=== PATIENT | female | born 1950 | race Caucasian/White ===

== ENCOUNTER 2024-05-15 11:11 | Day surgery (SDC) | payer OTHER, SELFPAY ==
[2024-05-01 10:47] VITALS: BMI 31.1
[2024-05-15] VITALS (9 sets, daily range): BP systolic 103–138; BP diastolic 57–82; PULSE 80–94; RESP 14–18; TEMP 36.1–36.8; O2SAT 94–98; BMI 31.1
--- NOTE | 2024-05-15 06:39 | DI.RAD.S_ITS ---
PROCEDURE: XR SHOULDER LT 1V INDICATIONS: reverse TSA TECHNIQUE: 1 views of the shoulder were acquired. COMPARISON: None. FINDINGS: Bones: Patient is status post reverse left shoulder arthroplasty with anatomic shoulder alignment. Surgical hardware are in inspected position. No acute fracture or dislocation. Soft tissues: Expected postsurgical changes are seen in left shoulder soft tissue. IMPRESSION: Postsurgical changes from left shoulder reverse arthroplasty with anatomic shoulder alignment. Dictated by: Marvin Kingston M.D. on 05/16/2024 at 16:36 Approved by: Marvin Kingston M.D. on 05/16/2024 at 16:37
--- NOTE | 2024-05-15 14:21 | PM.PREOP ---
Pre-operative Note Interval Note History & Physical reviewed/Exam performed by Physician: Yes Changes to H&P: No
[2024-05-15] MEDS: CLINDAMYCIN 900 MG/50 ML PIGGYBACK 50 MG IV (15:40)
[2024-05-15] MEDS: TRANEXAMIC ACID 1,000 MG in SODIUM CHLORIDE 0.9% 100 ML 200 MG IV (15:54)
--- NOTE | 2024-05-15 16:12 | SUR.OPER ---
Beach chair with Skytron shoulder positioner. Lower body on padded OR bed. Head in foam padded head cradle, secured with straps. Non-operative arm secured <90 degrees abduction. Pillow under knees. Safety belt at thigh. Cloth tape over blanket over lower legs.
[2024-05-15] MEDS: BUPIVACAINE 0.25% (PF) 30 ML, EPINEPHrine 0.15 MG INJ (16:19)
--- NOTE | 2024-05-15 17:19 | PM.OP.1 ---
Operative Date/Time/Diagnoses Date of procedure: 05/15/24 Time of procedure: 17:19 Pre-op diagnosis: Left shoulder avascular necrosis Post-op diagnosis: same Procedure & Clinicians Procedure: Left reverse total shoulder arthroplasty Same procedure as scheduled: Yes Indications: Indications: This is a 74-year-old female who has avascular necrosis of her left shoulder. Symptoms have been present for years, insidious onset. Patient has failed a reasonable attempt at conservative therapy. After extensive discussion in clinic, they wished to go forward with surgery. Risks and benefits were described including the risk of infection, bleeding, damage to internal structures including nerves. We also discussed the risk of failure of surgery and the need for revision surgery as well as the risk of anesthesia. The patient expressed understanding with these risks and wished to go forward with surgery. Surgeon: Alonzo Ocampo Machinist Apprentice: Annita Renteria Anesthesia Type: General Operative Notes Findings: Findings: Osteoarthritis of the glenoid and humeral head as noted on preoperative imaging and under direct visualization Closure Type: primary Specimen(s): none sent Prosthetic devices, grafts, tissues, transplants, or devices: Tornier implants Base plate: standard 25 mm, +3 mm offset Glenosphere: Standard 36 mm Stem: Perform 2 Poly: +0, 55% coverage Estimated Blood Loss (mL): 100 Blood products transfused: none Procedure in detail: Patient was seen in the preoperative holding unit. The correct left shoulder was identified and marked with my initials. Again we discussed the risks and benefits of surgery and they wished to go forward with surgery. The patient was brought back to the operating room and placed supine on the operating table. Smooth endotracheal intubation was performed by anesthesia. All prominences were padded and they were placed into the beach chair position. Intravenous antibiotics were given. The left shoulder was then prepped with the standard sterile preparation and draping. A time-out was then performed in my initials were again identified on the correct shoulder. 1 g of IV tranexamic acid was given. A standard deltopectoral incision was made. Skin flaps were made. The cephalic vein was identified and retracted laterally. This was protected throughout the remainder of the case. Sharp dissection was made along the deltoid, subacromial and subcoracoid space to release adhesions. The conjoined tendon was identified and the axillary nerve was palpated and continuous using the tug test. It was protected throughout the remainder of the case. A brown retractor was placed underneath the deltoid muscle and a darach retractor underneath the conjoint tendon. The subscapularis muscle was ntoed to be intact. The anterior circumflex artery and associated veins on the lower border of the subscapularis were identified and tied off using 0-Vicryl. The biceps tendon was identified in the bicipital groove. This was released from its sheath, and taken from its origin on the glenoid and tied into the pectoralis tendon for a solid tenodesis. We then began a subscapularis peel. The subscapularis was tagged with an Ethibond suture. A 360 degree circumferential release of the subscapularis was performed with protection of the axillary nerve. The coracohumeral ligament was released at the base of the coracoid. The shoulder was then dislocated. Osteophytes were removed using combination of rongeur and osteotome. The rotator cuff was noted to be intact. An intramedullary guide was used set at version of 20?. Using an oscillating saw a conservative humeral head cut was made. Impaction reamers were reamed up to a size 2 stem with a built-in angle 135?. A neck protector was placed. Attention was then turned to the glenoid. After retracting the humeral head posteriorly a circumferential release was performed of the capsule with protection of the axillary nerve. The labrum was then released starting at the biceps anchor and going around the rim a small amount of triceps was released from the inferior glenoid. A center guide pin was then placed using the guide, followed by Reamer. After adequate cartilage was removed the boss was reamed and the centeral hole was drilled and measured. The base plate was then implanted and screwed into place. The peripheral screws were then sequentially drilled, measured, and placed. A 36 standard glenosphere was then selected and screwed into place onto the base plate. Turning back to the humerus, the humeral head was delivered and trialed with a 0 retentive. The arm was taken through range of motion and this was felt to be stable. The trial was then removed and a dilute Betadine wash was then performed with 1 L of sterile saline. Before placing the final implant, drill holes were made in the bicipital groove for the subscapularis repair, and sutures were passed through the drill holes. The final stem was then impacted into the humerus. The shoulder was then reduced and again brought through range of motion and was felt to be stable. The subscapularis was then repaired using a modified racking hitch with nice loupes. The deltopectoral interval was then closed with #2 Ethibond. The skin was closed with 2-0 vicryl and 3-0 Monocryl followed by Aquacel dressing. Patient was awoken from anesthesia and brought back to the postoperative recovery unit without issue. They were placed into a sling. Assisting participation: This operation could not have been safely performed (without compromising the technical results or length of the procedure) without the assistance of a skilled surgical product sales consultant. The surgical product sales consultant was medically necessary for proper positioning, retraction and manipulation of instruments, proper exposure, graft prep, and manipulation of tissue. Complications: none Post-operative Condition: stable Disposition: PACU Plan for aftercare: Postoperative instructions: Sling to remain on for 6 weeks. No external rotation past neutral for 6 weeks. Okay for the sling to come off for shower. Okay to shower over the Aquacel dressing. If any water gets underneath the dressing, remove the dressing. First postoperative visit in 2 weeks.
[2024-05-15] MEDS: TRAMADOL 50 MG TABLET 100 MG PO ×2 (17:58→23:18)
[2024-05-15] MEDS: LACTATED RINGERS 1,000 ML 100 ML IV (18:35)
[2024-05-15] MEDS: ACETAMINOPHEN 325 MG TABLET 650 MG PO (18:35)
--- NOTE | 2024-05-15 18:46 | P.CONS_ITS ---
History of Present Illness Consult details Date Patient Seen: 05/15/24 Time Patient Seen: 18:47 Chief complaint: Left reverse TSA *OPB* Reason for consult: Medical management, history of liver transplant, AFib, and TAVR. Narrative: Patient was a 74-year-old female who is status post a left shoulder replacement. The surgery went well and she would minimal estimated blood loss. She was extubated in the PACU and is doing well upon transfer to the floor. She denies any chest pain, or dyspnea. She also denies any recent increase of leg edema or orthopnea. She is followed by Dr. Srivastava at [facility]. He gave her a preoperative clearance for her surgery. She denies any recent issues with nausea, or vomiting. No abdominal pain. She does have a history of multiple drug allergies and is reluctant to take any pain medication other than tramadol. She does take this chronically, and request 100 mg q.4 hours as needed. She has no history of seizure disorder. Meds Home Medications and Allergies Home Medications Medication Instructions Recorded Confirmed Type acetaminophen 325 mg tablet 650 mg PO DAILY PRN Pain, Moderate 05/01/24 05/15/24 History (Tylenol) allopurinol 100 mg tablet 200 mg PO DAILY 05/01/24 05/15/24 History amlodipine 2.5 mg tablet 2.5 mg PO DAILY 05/01/24 05/15/24 History aspirin 81 mg tablet,delayed 81 mg PO DAILY 05/01/24 05/01/24 History release citalopram 20 mg tablet (Celexa) 20 mg PO DAILY 05/01/24 05/15/24 History clopidogrel 75 mg tablet 75 mg PO DAILY 05/01/24 05/15/24 History diclofenac sodium 1 % topical gel 2 g topical QID PRN arthritis 05/01/24 05/01/24 History (Voltaren Arthritis Pain) gabapentin 300 mg capsule 300 mg PO ONCE PM 05/01/24 05/15/24 History levothyroxine 25 mcg tablet 25 mcg PO DAILY 05/01/24 05/15/24 History metformin 500 mg tablet 500 mg PO TID 05/01/24 05/15/24 History metoprolol succinate 50 mg 25 mg PO BID 05/01/24 05/15/24 History tablet,extended release 24 hr nitroglycerin 0.4 mg sublingual 0.4 mg sublingual DIRECTED 05/01/24 05/01/24 History tablet nitroglycerin 0.4 mg/hr 1 patch topical DAILY 05/01/24 05/01/24 History transdermal 24 hour patch ondansetron 4 mg disintegrating 4 mg PO Q12H PRN nausea/vomiting 05/01/24 05/15/24 History tablet prochlorperazine maleate 10 mg 10 mg PO Q6H PRN nausea 05/01/24 05/15/24 History tablet ranolazine 1,000 mg 1,000 mg PO BID angina 05/01/24 05/15/24 History tablet,extended release,12 hr tramadol 50 mg tablet 50 mg PO BID PRN Pain, Moderate 05/01/24 05/15/24 History Allergies Allergy/AdvReac Type Severity Reaction Status Date / Time Cephalosporins Allergy Severe Anaphylaxis Verified 05/15/24 12:53 ciprofloxacin [From Cipro] Allergy Severe Anaphylaxis Verified 05/15/24 12:53 insulin glargine Allergy Severe Anaphylaxis Verified 05/15/24 12:53 [From Lantus U-100 Insulin] morphine Allergy Severe Anaphylaxis Verified 05/15/24 12:53 oxycodone Allergy Severe Hallucinati Verified 05/15/24 12:53 ng Sulfa (Sulfonamide Allergy Severe Anaphylaxis Verified 05/15/24 12:53 Antibiotics) hydromorphone [From Dilaudid] AdvReac Hives Verified 05/15/24 12:53 Review of Systems Review of Systems Narrative: All else reviewed and otherwise unremarkable except as noted in the history and physical. Exam Vital Signs (past 8 hours): - 05/15/24 13:15 05/15/24 17:28 05/15/24 17:38 Temperature 98.2 F 97.4 F L 97.3 F L Pulse Rate 83 89 84 Respiratory Rate 16 15 15 Blood Pressure 138/70 137/57 L 121/59 L Pulse Oximetry 98 94 94 Oxygen Delivery Method Room Air Room Air Nasal Cannula Oxygen Flow Rate 2 05/15/24 17:44 05/15/24 18:31 05/15/24 18:40 Temperature 97.3 F L 96.9 F L Pulse Rate 82 80 Respiratory Rate 15 14 Blood Pressure 131/57 L 124/60 Pulse Oximetry 97 96 Oxygen Delivery Method Nasal Cannula Nasal Cannula Oxygen Flow Rate 2 2 Oxygen Delivery Method Nasal Cannula Oxygen Flow Rate 2 Narrative Exam Narrative: NAD, alert and oriented, fluent speech, calm. Normocephalic skull, EOMI, anicteric sclera, symmetric pupils. Oropharynx unremarkable, no droop. Neck supple, midline trachea, no adenopathy. Lungs clear, normal rate and effort. Heart regular, no murmur gallop or rub. Abdomen is soft, non distended and non tender. Extremities are free of edema. Skin is free of rash or lesions. Joints are not swollen or deformed. Judgment appears to be normal. Left shoulder is in an immobilizer. She was a left chest port. [facility] Medical History Heart attack (2018) Non-Hodgkin lymphoma Arm fracture, left (2022) UTI (urinary tract infection) (01/2022) Cirrhosis, non-alcoholic Osteoarthritis Depression Skin cancer Hypothyroid Diabetes Hiatal hernia CAD (coronary artery disease) HLD (hyperlipidemia) Fibromyalgia Neuropathy Surgical History History of salpingo-oophorectomy History of appendectomy History of tonsillectomy H/O aortic valve replacement Hx of heart artery stent Hx of cholecystectomy Liver transplant recipient (2010) History of bilateral knee replacement (2012) Social History household members: none other: She lives in [place]. Tobacco & Substance Use Smoking Status: Former smoker alcohol intake: former Assessment & Plan Assessment & Plan narrative: 1. Liver transplant, present on admission and stable. 2. Aortic stenosis with history of TAVR, present on admission and stable. 3. History of lymphoma, currently in remission. 4. CAD with history of CA and coronary artery stenting. Present on admission and active. 5. DM 2, present on admission and active. 6. Depression, present on admission and active. 7. Fibromyalgia, present on admission and Active. Plan: - Monitor hemodynamics. - Resume usual chronic medications for cardiac and liver transplant. - Low-dose of glargine with correctional lispro for tonight. - Monitor liver function tests. Full resuscitation, confirmed with her tonight. Time-Based Coding :: 35 min spent with patient and on the chart (including review of chart, obtaining history, exam, reviewing outside data, placing orders, documenting exam and treatment plan, and counseling patient) on 05/15.
[2024-05-15] MEDS: RANOLAZINE 500 MG TAB.ER.12H 1000 MG PO (21:47)
[2024-05-15] MEDS: METFORMIN HCL 500 MG TABLET PO (21:47)
[2024-05-15] MEDS: GABAPENTIN 300 MG CAPSULE PO (21:50)
[2024-05-15] MEDS: ASPIRIN EC 81 MG TABLET PO (21:50)
[2024-05-15] MEDS: SENNOSIDES 8.6 MG TABLET 17.2 MG PO (21:50)
[2024-05-15] MEDS: TRAMADOL 50 MG TABLET PO (21:50)
[2024-05-15] MEDS: DOCUSATE 100 MG CAPSULE PO (21:50)
[2024-05-16] MEDS: ACETAMINOPHEN 325 MG TABLET 650 MG PO ×4 (00:16→16:48)
[2024-05-16 00:35] VITALS: BP 108/65; PULSE 84; RESP 16; TEMP 36.6; O2SAT 95
[2024-05-16 05:35] LABS: Add Manual Diff / Slide Review NO; Basophils Absolute Auto 0 /uL (0-100); Basophils Percent Auto 0.8 % (0-2); Eosinophils Absolute Auto 200 /uL (0-450); Eosinophils Percent Auto 3.1 % (2-4); Hematocrit 32.4 % (36-46); Hemoglobin 10.9 g/dL (12.0-16.0); Lymphocytes Absolute Auto 1200 /uL (1100-4500); Lymphocytes Percent Auto 22.4 % (25-40); Mean Corpuscular HGB Conc 33.7 % (30-36); Mean Corpuscular Hemoglobin 33.3 PG (26-34); Mean Corpuscular Volume 98.9 fL (80-100); Monocytes Absolute Auto 1000 /uL (0-900); Monocytes Percent Auto 17.4 % (3-14); Neutrophils Absolute Auto 3100 /uL (1500-7000); Neutrophils Percent Auto 56.3 % (50-75); Platelet Count 217 X10^3/uL (150-400); Red Blood Cell Count 3.27 X10^6/uL (4.0-5.2); Red Cell Distribution Width 14.3 % (11.6-14.8); White Blood Cell Count 5.5 X10^3/uL (4.5-11.0)
[2024-05-16] MEDS: LEVOTHYROXINE 25 MCG TABLET PO (05:47)
[2024-05-16] MEDS: TRAMADOL 50 MG TABLET 100 MG PO ×2 (05:48→17:34)
[2024-05-16] MEDS: LACTATED RINGERS 1,000 ML 100 ML IV (05:50)
[2024-05-16 05:52] LABS: BUN Creatinine Ratio 20.6 (6-22); Blood Urea Nitrogen 26 mg/dL (7-17); Carbon Dioxide 25 mmol/L (22-32); Chloride 101 mmol/L (98-107); Estimated Glomerular Filt Rate 45 mL/min (>60); Glucose 186 mg/dL (80-110); HEMOLYSIS < 15 (0-50); Sodium 134 mmol/L (137-145)
[2024-05-16 08:00] VITALS: BP 94/52; PULSE 84; RESP 16; TEMP 36.4; O2SAT 93
[2024-05-16] MEDS: RANOLAZINE 500 MG TAB.ER.12H 1000 MG PO ×2 (08:20→21:00)
[2024-05-16] MEDS: CLOPIDOGREL 75 MG TABLET PO (08:20)
[2024-05-16] MEDS: allopurinoL 100 MG TABLET 200 MG PO (08:20)
[2024-05-16] MEDS: CITALOPRAM 10 MG TABLET 20 MG PO (08:20)
[2024-05-16] MEDS: METFORMIN HCL 500 MG TABLET PO ×3 (08:20→20:59)
[2024-05-16] MEDS: polyethylene glycoL 3350 17 GM POWD.PACK PO (08:20)
[2024-05-16] MEDS: ASPIRIN EC 81 MG TABLET PO ×2 (08:20→20:59)
[2024-05-16] MEDS: DOCUSATE 100 MG CAPSULE PO (08:21)
--- NOTE | 2024-05-16 09:00 | CM.DANOTE ---
Initial DCP Assessment Note Pt is a 74 yo female, resident of [place], now POD#1 from left reverse TSA PCP: Shahzad Ballesteros Payer: Deepak WALSH Reviewed chart, met w/patient to review discharge plan. Patient lives independently in her [place] apt. Therapy pending today to assist with dispo planning. No barriers identified at this time to patient's safe discharge home w/sister and grandchildren to assist; close outpatient f/u recommended. CM team will plan to follow clinical course closely in case any DC needs or concerns arise. ATILIO Bowers Discharge Planning/Care Management CM Discharge Assessment Start: 05/16/24 08:53 Freq: Status: Active Protocol: Document 05/16/24 08:54 LELAND (Rec: 05/16/24 09:00 LELAND [id number]) Discharge Planning Assessment Assigned Soapstoner ATILIO Denise DPOA/Assigned Designee Name sister Catherine Contact Information [phone] Advance Directives? Yes: Needs to be updated. Advance Directives on File No History Provided By Patient,Medical Record Prior Living Arrangements Apartment/Condo Household Members none Type of transporation used prior to Drives own vehicle admit Independent with ADL's Yes Is patient alert and oriented? Yes Comment Home Barriers to Discharge No Comment Therapy pending today. Discharge Plan Home Transportation Arrangement Family Referrals Initiated None needed
--- NOTE | 2024-05-16 09:20 | PT.IIE ---
Current Diagnoses Primary osteoarthritis, left shoulder (05/15/24) Surgery Performed Operation Date: 05/15/24 13:30 Actual Procedures p Left reverse total shoulder arthroplasty with biceps tenodesis(Left) - Alonzo Ocampo MD Surgical History (Last Reviewed 05/15/24 @ 18:48 by Estuardo Pedro MD) H/O aortic valve replacement History of appendectomy History of bilateral knee replacement (2012) History of salpingo-oophorectomy History of tonsillectomy Hx of cholecystectomy Hx of heart artery stent Liver transplant recipient (2010) Medical History (Last Reviewed 05/15/24 @ 18:48 by Estuardo Pedro MD) Arm fracture, left (2022) CAD (coronary artery disease) Cirrhosis, non-alcoholic Depression Diabetes Fibromyalgia Heart attack (2018) Hiatal hernia HLD (hyperlipidemia) Hypothyroid Neuropathy Non-Hodgkin lymphoma Osteoarthritis Skin cancer UTI (urinary tract infection) (01/2022) Physical Therapy Inpatient Evaluation/Re-Eval M1 PT/OT-IP Prior Functional Status Start: 05/16/24 12:17 Freq: NEEDED Status: Active Protocol: Document 05/16/24 09:20 AB (Rec: 05/16/24 12:29 AB [id number]) Medical Review Prior Functional Status Medical History Reviewed Yes Communication able to make needs known Mobility and Gait pt stated that she was independent with all mobilities and ambulation without AD Social History Household Members none Living Arrangements Apartment/Condo Number of Floors (Floors) One Floor Number of Stairs To Enter/Railing? 15 steps B rails to enter Home Environment Standard Height Toilet Home Equipment Straight Cane,Raised Toilet Seat w/Armrests,Shower Seat without Backrest,Hand Held Shower,Grab Bars In Shower Additional Social History Comment pt's sister will be staying with pt for 2 days to assist; can call for assistance if needed afterwards M2 PT-IP Current Condition Start: 05/16/24 12:17 Freq: NEEDED Status: Active Protocol: Document 05/16/24 09:20 AB (Rec: 05/16/24 12:29 AB [id number]) Physical Therapy Current Condition Current Condition Evaluation Date 05/16/24 Treatment Diagnosis s/p L TSA reverse; difficulty in walking Onset Date 05/15/24 M3 PT-IP Subjective Start: 05/16/24 12:17 Freq: NEEDED Status: Active Protocol: Document 05/16/24 09:20 AB (Rec: 05/16/24 12:29 AB [id number]) Subjective Physical Therapy Visit Type Type Initial Evaluation Visit Start Time 09:20 Visit Stop Time 10:20 Number of POLE PEELER Visits 0 Physical Therapy Visit Comments Patient Comments agreeable to do PT Therapy Pain Assessment Pain When Pain Assessed At Rest Pain Present Pain Present Pain Reported Location Left Shoulder Intensity 8 Scale Used refuse to take pain meds Pain Management Techniques Apply Cold,Distraction, Modification of Treatment,Re- positioning,Timing of Activity with Medications M4 PT-IP Mobility and Gait Start: 05/16/24 12:17 Freq: NEEDED Status: Active Protocol: Document 05/16/24 09:20 AB (Rec: 05/16/24 12:29 [id number]) PT-Bed Mobility Assessment Supine to Sit Supine to Sit Minimal Assistance PT-Transfer Assessment Sit to and From Stand Sit to and from Stand Contact Guard Assistance,1 Person Assistance,Use of Upper Extremities Equipment Transfer Assistive Device None,Gait Belt Orthotic/Prosthetic Devices or Brace: Yes Transfers Transfer Destination Chair Transfer Technique ambulated Transfer Ability Level of Assist Minimal Assistance,1 Person Assistance,Use of Upper Extremities Comments Mobility Comments pt in bed and agreeable to do PT. obtained PLOF and home set up. educated pt on shoulder precautions and HEP. post-op handout provided to pt. BP: 113/60. pt completed supine to sit min A and cues. able to sit on EOB SBA. pt completed elbow/wrist/hand exercises and pendulum. asssited pt with sling management. ortho PA came in and informed PT that waist strap of sling is not necessary. pt also refused the waist strap. pt completed sit to stand from EOB CGA and ambulated in room ~ 25 ft without AD min A and cues. c/o nausea and unable to do further activities. BP checked: 109/61. O2 sat: 97%. positioned pt on the chair. call light and table placed within reach. Gait Assessment Gait Gait Assistance Required: Minimum Assistance,1 Person Assist Distance (Feet) 25 Able to Maintain Weight Bearing Status Yes During Gait Assistive Devices Assistive Device None,Gait Belt Orthotic/Prosthetic Devices or Brace: Yes Gait Deviations General Gait Pattern Ataxic,Decreased Stride Length ,Decreased Feet Clearance,Step -to Gait Factors Limiting Gait Function Factors Limiting Gait Function Decreased Activity Tolerance, Decreased Strength,Difficulty Following Directions,Limited Range of Motion,Pain,Poor Balance,Poor Safety Awareness PT-Balance Assessment Sitting Balance and Reactions Static Sitting Balance Ability Good Dynamic Sitting Balance Ability Good Standing Balance and Reactions Static Standing Balance Ability Fair Dynamic Standing Balance Ability Fair Device Used without AD M5 PT-IP Objective Assessments Start: 05/16/24 12:17 Freq: NEEDED Status: Active Protocol: Document 05/16/24 09:20 AB (Rec: 05/16/24 12:29 [id number]) Orientation Orientation/Cognition Level of Alertness Alert Orientation Name,Place,Situation Language Function Ability Hard of Hearing Safety Awareness Decreased Safety Awareness Memory Description No Deficits Noted Gross Range of Motion Lower Extremity ROM Assessment Within Functional Limits Strength Lower Extremity Strength Assessment Within Functional Limits Coordination Assessment Gross Coordination Gross Coordination WNL Sensation Assessment Sensation Sensation Description Numbness Comments Sensation Comments B feet numbness per pt Muscle Tone Muscle Tone WNL Yes M6 PT-IP Treatment Start: 05/16/24 12:17 Freq: NEEDED Status: Active Protocol: Document 05/16/24 09:20 AB (Rec: 05/16/24 12:29 AB [id number]) Physical Therapy Treatment Exercises Exercises Shoulder Pendulums,Elbow Flexion/Extension,Wrist ROM, Hand ROM Education Education Provided Precautions,Weight Bearing Status,Post-Op Packet,Safety M7 PT-IP Assessment and Plan Start: 05/16/24 12:17 Freq: NEEDED Status: Active Protocol: Document 05/16/24 09:20 AB (Rec: 05/16/24 12:29 [id number]) PT Summary Assessment and Plan Potential Rehabilitation Potential Fair Status of Condition at Evaluation Evolving Summary Impairments Pain,ROM,Strength,Balance, Coordination,Sensation,Tone, Cognition,Bed Mobility, Transfers,Gait,Activity Tolerance Assessment Summary pt is a 74 y/o F s/p L TSA reverse POD 1. pt with L shoulder precautions. pt with c/o 8/10 pain but refuses to take pain meds. pt requiring min A with bed mobility and ambulation without AD and was not able to tolerate much activity due to c/o nausea. pt lives alone but her sister will stay with her for ~ 2 days to assist. will continue to assess. Goals Bed Mobility Goal Independent Transfer Goal Independent,Cane Gait Goal Independent,Cane Gait Distance 200 Other Goals improve transfers, ambulation without AD 250 ft mod I up/down 15 steps 1 rail mod I Days to Meet Goals 10 Frequency of Treatment Frequency Of Treatment Twice a Day Treatment Plan Physical Therapy Treatment Plan Bed Mobility Training,Transfer Training,Gait Training, Therapeutic Exercise,Balance Retraining,Post Op Education, Discharge Planning,Hot or Cold Pack,Neuromuscular Re-ed, Coordination Retraining,Manual Therapy Precautions Shoulder Precautions Sling,PROM,Internal Rotation to Body,No External Rotation, No Abduction,Forward Flexion to 90 degrees,Pendulums Weight Bearing Status Weight Bearing Status Non-Weight Bearing Allowed Weight Bearing Amount (enter % LUE NWB or #) (%) Recommendations To Nursing Amount of Assist Needed 1 Person Assist Discharge Recommendations PT Discharge Recommendations Home with 22/01 Assist Available,Home Health Transportation Needs at Discharge Private Vehicle,Wheelchair/ Cabulance
--- NOTE | 2024-05-16 10:14 | PM.PNPO.1 ---
Subjective Subjective Interval history: Maria Teresa is a pleasant 74 year old female who is POD#1 s/p left reverse total shoulder arthroplasty by Dr. Ocampo. This morning patient reports she is doing well, she does feel groggy still and like she has not fully woken up from the anaesthesia. She also complains of poor pain control. She states she would not feel safe d/c to home w/ her feeling this groggy still since her sister is in her 80's and can only provide limited support. She also has 14 steps at home. She lives alone but her sister plans to stay with her for the first few days post-op before returning back to [place]. She is urinating well w/o issue. She does not have her PT set up yet. Denies fever, chills, chest pain, SOB. Does endorse some nausea w/o vomiting. She has zofran ordered but it does not look like she has been given any according to the MAR. Exam Vital Signs (past 8 hours): - 05/16/24 08:00 Temperature 97.6 F Pulse Rate 84 Respiratory Rate 16 Blood Pressure 94/52 L Pulse Oximetry 93 Oxygen Flow Rate 0 Oxygen Delivery Method Nasal Cannula Oxygen Flow Rate 0 Narrative Exam Narrative: Patient sitting up comfortably at the side of the bed during our interview today. No acute distress. AOx3. Grossly normal alignment of the LUE with mild-moderate swelling throughout the LUE. No ecchymosis. Finger to thumb opposition intact, 4/5 pharmacy services director strength. Gross sensation intact throughout bilateral upper extremities. Calves soft and non-tender bilaterally. Brisk capillary refill, pulses intact. Post-surgical Aquacel dressing clean, dry and intact over the left shoulder without drainage. Objective Labs 05/16/24 04:43 05/16/24 04:43 Labs: Laboratory Results - last 24 hr 05/16/24 04:43 WBC 5.5 RBC 3.27 L Hgb 10.9 L Hct 32.4 L MCV 98.9 MCH 33.3 MCHC 33.7 RDW 14.3 Plt Count 217 Neut % (Auto) 56.3 Lymph % (Auto) 22.4 L Kidder % (Auto) 17.4 H Eos % (Auto) 3.1 Baso % (Auto) 0.8 Neut # (Auto) 3100 Lymph # (Auto) 1200 Kidder # (Auto) 1000 H Eos # (Auto) 200 Baso # (Auto) 0 Sodium 134 L Potassium 5.0 Chloride 101 Carbon Dioxide 25 BUN 26 H Creatinine 1.26 H Estimated GFR 45 L BUN/Creatinine Ratio 20.6 Glucose 186 H Calcium 9.0 PFSH Medical History Heart attack (2019) Non-Hodgkin lymphoma Arm fracture, left (2022) UTI (urinary tract infection) (01/2022) Cirrhosis, non-alcoholic Osteoarthritis Depression Skin cancer Hypothyroid Diabetes Hiatal hernia CAD (coronary artery disease) HLD (hyperlipidemia) Fibromyalgia Neuropathy Surgical History History of salpingo-oophorectomy History of appendectomy History of tonsillectomy H/O aortic valve replacement Hx of heart artery stent Hx of cholecystectomy Liver transplant recipient (2010) History of bilateral knee replacement (2012) Social History household members: none other: She lives in [place]. Smoking Status: Former smoker alcohol intake: former Assessment & Plan Post-op Postoperative Procedures: Procedures Operation Date: 05/15/24 13:30 Actual Procedure Side Surgeon p Left reverse total shoulder arthroplasty with biceps tenodesis Left Alonzo Ocampo MD Postoperative plan narrative: 1) Plan to discharge to home later today if sx improve or tomorrow with sister pending improvement in lethargy, nausea and pain control. Would like patient to be given zofran if nauseous. 2) Continue multimodal pain management with ice to the shoulder for additional pain control. 3) ASA b.i.d. for DVT prophylaxis. 4) Work w/ PT on appropriate ROM. Remain in sling w/ no ER past neutral for 6 weeks. Recommend pendulum exercises. Patient needs to schedule outpatient PT, she states understanding and will call our office to set up appts. 5) Keep dressing intact, clean, dry until 2 week postop appointment. No soaking the incision site in pools or tubs. No topical ointments or creams to the incision site. 6) Follow up at [facility] in 2 weeks for a postop appointment and wound check. All patient's questions were answered, she demonstrates understanding and is in agreement with the plan. Call our office if any questions or concerns arise. Quality VTE Deep Vein Thrombosis/Pulmonary Embolism Present on Admission: No
[2024-05-16] MEDS: ONDANSETRON 4 MG/2 ML INJ IV (10:30)
[2024-05-16 12:00] VITALS: BP 113/60; PULSE 88; RESP 16; TEMP 36.5; O2SAT 94
[2024-05-16] MEDS: TRAMADOL 50 MG TABLET PO (12:04)
--- NOTE | 2024-05-16 14:03 | OT.IP.EVAL ---
Current Diagnoses Primary osteoarthritis, left shoulder (05/15/24) Surgery Performed Operation Date: 05/15/24 13:30 Actual Procedures p Left reverse total shoulder arthroplasty with biceps tenodesis(Left) - Alonzo Ocampo MD Past Medical History (Last Reviewed 05/15/24 @ 18:48 by Estuardo Pedro MD) Arm fracture, left (2022) CAD (coronary artery disease) Cirrhosis, non-alcoholic Depression Diabetes Fibromyalgia Heart attack (2018) Hiatal hernia HLD (hyperlipidemia) Hypothyroid Neuropathy Non-Hodgkin lymphoma Osteoarthritis Skin cancer UTI (urinary tract infection) (01/2022) Surgical History (Last Reviewed 05/15/24 @ 18:48 by Estuardo Pedro MD) H/O aortic valve replacement History of appendectomy History of bilateral knee replacement (2012) History of salpingo-oophorectomy History of tonsillectomy Hx of cholecystectomy Hx of heart artery stent Liver transplant recipient (2010) Occupational Therapy Inpatient Evaluation/Re-Eval M1 PT/OT-IP Prior Functional Status Start: 05/16/24 12:17 Freq: NEEDED Status: Active Protocol: Document 05/16/24 14:54 [facility] (Rec: 05/16/24 15:04 [facility] [id number]) Medical Review Prior Functional Status Medical History Reviewed Yes Communication able to make needs known Mobility and Gait pt stated that she was independent with all mobilities and ambulation without AD Activities of Daily Living and IADL's Pt able to do all ADL and ADL needs but had pain. Social History Household Members none Living Arrangements Apartment/Condo Number of Floors (Floors) One Floor Number of Stairs To Enter/Railing? 15 steps B rails to enter Home Environment Standard Height Toilet Home Equipment Straight Cane,Raised Toilet Seat w/Armrests,Shower Seat without Backrest,Hand Held Shower,Grab Bars In Shower Additional Social History Comment pt's sister will be staying with pt for 2 days to assist; can call for assistance if needed afterwards M2 OT-IP Current Condition Start: 05/16/24 14:53 Freq: Status: Active Protocol: Document 05/16/24 14:54 [facility] (Rec: 05/16/24 15:04 [facility] [id number]) Occupational Therapy Current Condition Current Condition Evaluation Date 05/16/24 Treatment Diagnosis S/P Left reverse TSA Diagnosis Onset Date 05/15/24 Post Operative Precautions Shoulder Precautions Sling,PROM,Internal Rotation to Body,No External Rotation, No Abduction,Forward Flexion to 90 degrees,Pendulums Other Precautions PA states that pt does not have to wear the waist. Weight Bearing Status Weight Bearing Status Non-Weight Bearing Allowed Weight Bearing Amount (enter % LUE NWB or #) (%) M3 OT- IP Subjective and Pain Start: 05/16/24 14:53 Freq: Status: Active Protocol: Document 05/16/24 14:54 [facility] (Rec: 05/16/24 15:04 [facility] [id number]) OT- Subjective Occupational Therapy Visit Type Type Initial Evaluation Visit Start Time 13:45 Visit Stop Time 14:03 Occupational Therapy Visit Comments Patient Comments Pt agreed to get up to the bathroom. Patient/Caregiver Goals TO go home. OT Pain Assessment Pain When Pain Assessed At Rest Pain Present Pain Present Pain Reported Location Left Shoulder Intensity 6 Scale Used Numeric (0 - 10) M4 OT- IP ADL's Start: 05/16/24 14:53 Freq: Status: Active Protocol: Document 05/16/24 14:54 [facility] (Rec: 05/16/24 15:04 [facility] [id number]) OT HSM-Lfpw-Molhyor Comments OT Self-Feeding Comments Not at meal time. OT ADL-Grooming Comments OT Grooming Comments Pt not wanting to perform. OT ADL-Oral Care Comments Oral Care Comments Pt refusing at this time. OT ADL-Dressing Comments OT Dressing Comments Pt states to wear loose clothing at home. Pt states has been practicing at home to do her dressing needs one handed. OT ADL-Toileting General Evaluation Toileting Ability Standby Assistance Comments OT Toileting Comments SBA while standing to wipe. OT ADL-Bathing Comments OT Bathing Comments When over how to shower and dangle her LUE for dressing and hygiene needs. M5 OT- IP IADL's Start: 05/16/24 14:53 Freq: Status: Active Protocol: Document 05/16/24 14:54 [facility] (Rec: 05/16/24 15:04 [facility] [id number]) OT-Instrumental Activities of Daily Living Home Safety Awareness Awareness of Need for Assistance at Home Good Awareness Ability to Problem Solve Emergency Able to Problem Solve Situations Home Safety Comments Pt has a supportive sister to assist her initially and then friends. Medication Management Medication Management No Deficits Identified Money Management Money Management No Deficits Identified Meal Preparation Meal Preparation Comments Pt will need assist. Manager Poker Manager Poker Comments Pt will benefit from assist. M6 OT- IP Functional Cognition Start: 05/16/24 14:53 Freq: Status: Active Protocol: Document 05/16/24 14:54 [facility] (Rec: 05/16/24 15:04 [facility] [id number]) Cognitive Factors Limiting Selfcare Function Cognitive Ability Level of Alertness Alert Patient Orientation Name,Age,Birthday,Month,Date, Year,Day of Week,Place, Situation Attention Span Ability Capable of Focused Attention, Capable of Sustained Attention Ability to Follow Commands Able to Follow One Step Commands Cognitive Comments Cognitive Assessment Comments Pt able to follow commands for ADL and mobility needs. OT- Vision and Hearing OT- Vision Assessment Visual Acuity WFL Visual Attentiveness WFL M7 OT- IP Mobility and Balance Start: 05/16/24 14:53 Freq: Status: Active Protocol: Document 05/16/24 14:54 [facility] (Rec: 05/16/24 15:04 [facility] [id number]) OT- Bed Mobility Assessment Supine to Sit Supine to Sit Assist Standby Assistance Sit to Supine Sit to Supine Assist Standby Assistance OT-Transfer Assessment Sit to and From Stand Sit to and from Stand Standby Assistance,Contact Guard Assistance Transfers Transfer Ability Contact Guard Assistance Technique Transfer Destination Bed,Toilet Devices Transfer Assistive Devices None Comments Mobility Comments Assist for IV pole and occasional CGA for balance. Pt refusing use of gait belt at this time. OT- Balance Assessment Sitting Balance and Reactions Static Sitting Balance Ability Normal Dynamic Sitting Balance Ability Good Standing Balance and Reactions Static Standing Balance Ability Good Dynamic Standing Balance Ability Fair M8 OT- IP Objective Assessments Start: 05/16/24 14:53 Freq: Status: Active Protocol: Document 05/16/24 14:54 [facility] (Rec: 05/16/24 15:04 [facility] [id number]) OT Gross Range of Motion Upper Extremity Range of Motion Assessment Left Impaired OT Strength Upper Extremity Strength Assessment Left Impaired M9 OT- IP Assessment and Plan Start: 05/16/24 14:53 Freq: Status: Active Protocol: Document 05/16/24 14:54 [facility] (Rec: 05/16/24 15:04 [facility] [id number]) OT Summary Assessment and Plan Potential Rehabilitation Potential Excellent Analytic Complexity at Evaluation Low Summary OT Impairments Pain,Balance,Functional Mobility,Dressing,Bathing, Toilet Transfers,Shower Transfers Progress Towards Goals Progressing Toward Goals Assessment Summary Pt low complexity and main barriers are pain, steps, and will need assist for ADL and IADL needs. Pt to have her sister assist and friends afterwards. Pt to go home with assist and outpt PT. Goals Self-Feeding Goal Independent Grooming Goal Independent Dressing Goal Minimal Assistance Toileting Goal Independent Bathing Goal Minimal Assistance Toilet Transfer Goal Independent Shower Transfer Goal Standby Assistance Days to Meet Goals 3 Frequency of Treatment Frequency Of Treatment Once a Day Treatment Plan OT Treatment Plan ADL Training,Functional Mobility,Patient/Family Education,Discharge Planning Discharge Recommendations OT Discharge Recommendations Home with Assistance, Outpatient PT Transportation Needs at Discharge Private Vehicle
--- NOTE | 2024-05-16 14:30 | PT.IPTN ---
Current Diagnoses Primary osteoarthritis, left shoulder (05/15/24) Surgery Performed Operation Date: 05/15/24 13:30 Actual Procedures p Left reverse total shoulder arthroplasty with biceps tenodesis(Left) - Alonzo Ocampo MD Physical Therapy Treatment Note M2 PT-IP Current Condition Start: 05/16/24 12:17 Freq: NEEDED Status: Active Protocol: Document 05/16/24 09:20 AB (Rec: 05/16/24 12:29 AB [id number]) Physical Therapy Current Condition Current Condition Evaluation Date 05/16/24 Treatment Diagnosis s/p L TSA reverse; difficulty in walking Onset Date 05/15/24 M3 PT-IP Subjective Start: 05/16/24 12:17 Freq: NEEDED Status: Active Protocol: Document 05/16/24 14:30 AB (Rec: 05/16/24 17:36 AB [id number]) Subjective Physical Therapy Visit Type Type Treatment Note Visit Start Time 14:30 Visit Stop Time 15:10 Number of GAMBLING COUNSELLOR Visits 0 Physical Therapy Visit Comments Patient Comments agreeable to do PT Therapy Pain Assessment Pain When Pain Assessed At Rest Pain Present Pain Present Pain Reported Location Left Shoulder Intensity 4 Scale Used Numeric (0 - 10) M4 PT-IP Mobility and Gait Start: 05/16/24 12:17 Freq: NEEDED Status: Active Protocol: Document 05/16/24 14:30 AB (Rec: 05/16/24 17:36 AB [id number]) PT-Bed Mobility Assessment Supine to Sit Supine to Sit Standby Assistance,Bedrails PT-Transfer Assessment Sit to and From Stand Sit to and from Stand Contact Guard Assistance,1 Person Assistance,Use of Upper Extremities Equipment Transfer Assistive Device None,Gait Belt,Straight Cane Orthotic/Prosthetic Devices or Brace: Yes Transfers Transfer Destination Chair Transfer Technique ambulated Transfer Ability Level of Assist Contact Guard Assistance, Minimal Assistance,1 Person Assistance,Use of Upper Extremities Comments Mobility Comments pt supine in bed and sister in room. pt's sister stated that she is not going to be able to assist pt much due to her back problem and should not lift more than 2#. pt completed supine to sit SBA with use of bed rail. pt able to sit on EOB SBA. educated pt on donning/doffing sling. pt completed with min A required. cued for shoulder precautions. pt completed sit to stand from EOB CGA and ambulated in room without AD 30 ft CGA to min A with (+) LOB. cued to slow down. assessed ambulation using SPC and completed CGA ~ 30 ft. pt sat on the chair. educated pt on safety. pt agreed to do stairs. completed sit to stand from chair SBA and ambulated in the hallway using SPC ~ 100 ft SBA to CGA. stair climbing training using R rail CGA and cues. assisted pt back to her room. pt requested to go back to bed. ambulated from w/c to bed using SPC SBA. completed sit to supine SBA. positioned pt in bed. call light and table placed within reach. Gait Assessment Gait Gait Assistance Required: Contact Guard Assist,Minimum Assistance Distance (Feet) 100 Able to Maintain Weight Bearing Status Yes During Gait Assistive Devices Assistive Device None,Gait Belt,Straight Cane Orthotic/Prosthetic Devices or Brace: Yes Gait Deviations General Gait Pattern Decreased Stride Length Factors Limiting Gait Function Factors Limiting Gait Function Decreased Activity Tolerance, Decreased Strength,Limited Range of Motion,Pain,Poor Balance,Poor Safety Awareness Stair Climbing Assessment Evaluation Level of Assist On Stairs Contact Guard Assistance,1 Person Assistance Devices Stair Climbing Assistive Devices Straight Cane,Right Railing Technique/Endurance Stair Climbing Direction Ascend and Descend Stair Climbing Technique Step to Step Number of Steps Climbed 3 Stair Climbing Set # Repetitions (reps) 4 M5 PT-IP Objective Assessments Start: 05/16/24 12:17 Freq: NEEDED Status: Active Protocol: Document 05/16/24 09:20 AB (Rec: 05/16/24 12:29 AB [id number]) Orientation Orientation/Cognition Level of Alertness Alert Orientation Name,Place,Situation Language Function Ability Hard of Hearing Safety Awareness Decreased Safety Awareness Memory Description No Deficits Noted Gross Range of Motion Lower Extremity ROM Assessment Within Functional Limits Strength Lower Extremity Strength Assessment Within Functional Limits Coordination Assessment Gross Coordination Gross Coordination WNL Sensation Assessment Sensation Sensation Description Numbness Comments Sensation Comments B feet numbness per pt Muscle Tone Muscle Tone WNL Yes M6 PT-IP Treatment Start: 05/16/24 12:17 Freq: NEEDED Status: Active Protocol: Document 05/16/24 14:30 AB (Rec: 05/16/24 17:36 AB [id number]) Physical Therapy Treatment Education Education Provided Precautions,Safety M7 PT-IP Assessment and Plan Start: 05/16/24 12:17 Freq: NEEDED Status: Active Protocol: Document 05/16/24 14:30 AB (Rec: 05/16/24 17:36 AB [id number]) PT Summary Assessment and Plan Potential Rehabilitation Potential Fair Summary Impairments Pain,ROM,Strength,Balance, Coordination,Sensation,Tone, Cognition,Bed Mobility, Transfers,Gait,Activity Tolerance Progress Towards Goals Slow Progress due to Pain,Slow Progress due to Activity Tolerance Assessment Summary pt improving slowly and able to ambulate using SPC SBA to CGA ~ 100 ft. pt will have her sister at home for only 2 days and will not be able to assist pt much. pt will benefit from HHPT. Goals Bed Mobility Goal Independent Transfer Goal Independent,Cane Gait Goal Independent,Cane Gait Distance 200 Other Goals improve transfers, ambulation without AD 250 ft mod I up/down 15 steps 1 rail mod I Days to Meet Goals 10 Frequency of Treatment Frequency Of Treatment Twice a Day Treatment Plan Physical Therapy Treatment Plan Bed Mobility Training,Transfer Training,Gait Training, Therapeutic Exercise,Balance Retraining,Post Op Education, Discharge Planning,Hot or Cold Pack,Neuromuscular Re-ed, Coordination Retraining,Manual Therapy Other Recommendations and Next Treatment donning/doffing of sling, Focus ambulation, stair climbing Precautions Shoulder Precautions Sling,PROM,Internal Rotation to Body,No External Rotation, No Abduction,Forward Flexion to 90 degrees,Pendulums Weight Bearing Status Weight Bearing Status Non-Weight Bearing Allowed Weight Bearing Amount (enter % LUE NWB or #) (%) Recommendations To Nursing Amount of Assist Needed 1 Person Assist Discharge Recommendations PT Discharge Recommendations Home with 22/01 Assist Available,Home Health Transportation Needs at Discharge Private Vehicle,Wheelchair/ Cabulance
--- NOTE | 2024-05-16 16:33 | PM.PN.1 ---
Subjective Subjective Date Patient Seen: 05/16/24 Time Patient Seen: 12:50 Interval history: Reason for consult: Medical management, history of liver transplant, AFib, and TAVR. Narrative: Patient was a 74-year-old female who is status post a left shoulder replacement. The surgery went well and she would minimal estimated blood loss. She was extubated in the PACU and is doing well upon transfer to the floor. She denies any chest pain, or dyspnea. She also denies any recent increase of leg edema or orthopnea. She is followed by Dr. Srivastava at [facility]. He gave her a preoperative clearance for her surgery. She denies any recent issues with nausea, or vomiting. No abdominal pain. She does have a history of multiple drug allergies and is reluctant to take any pain medication other than tramadol. She does take this chronically, and request 100 mg q.4 hours as needed. She has no history of seizure disorder. Interval history: She reports be feeling well. No chest pain, shortness for breath, breathing difficulty, leg pain or swelling, rash or other concerns. Exam Vital Signs (past 8 hours): Oxygen Delivery Method Nasal Cannula Oxygen Flow Rate 0 Narrative Exam Narrative: NAD, alert and oriented, fluent speech, calm. Oropharynx unremarkable, no droop. Neck supple, midline trachea, no adenopathy. Lungs clear, normal rate and effort. Heart regular, no murmur gallop or rub. Abdomen is soft, non distended and non tender. Extremities are free of edema. Skin is free of rash or lesions. Joints are not swollen or deformed. Judgment appears to be normal. Left shoulder is in an immobilizer. She has an accessed left chest port. Objective Labs 05/16/24 04:43 05/16/24 04:43 Labs: Laboratory Results - last 24 hr 05/16/24 04:43 WBC 5.5 RBC 3.27 L Hgb 10.9 L Hct 32.4 L MCV 98.9 MCH 33.3 MCHC 33.7 RDW 14.3 Plt Count 217 Neut % (Auto) 56.3 Lymph % (Auto) 22.4 L Levy % (Auto) 17.4 H Eos % (Auto) 3.1 Baso % (Auto) 0.8 Neut # (Auto) 3100 Lymph # (Auto) 1200 Levy # (Auto) 1000 H Eos # (Auto) 200 Baso # (Auto) 0 Sodium 134 L Potassium 5.0 Chloride 101 Carbon Dioxide 25 BUN 26 H Creatinine 1.26 H Estimated GFR 45 L BUN/Creatinine Ratio 20.6 Glucose 186 H Calcium 9.0 PFSH Medical History Heart attack (2018) Non-Hodgkin lymphoma Arm fracture, left (2022) UTI (urinary tract infection) (01/2022) Cirrhosis, non-alcoholic Osteoarthritis Depression Skin cancer Hypothyroid Diabetes Hiatal hernia CAD (coronary artery disease) HLD (hyperlipidemia) Fibromyalgia Neuropathy Surgical History History of salpingo-oophorectomy History of appendectomy History of tonsillectomy H/O aortic valve replacement Hx of heart artery stent Hx of cholecystectomy Liver transplant recipient (2010) History of bilateral knee replacement (2012) Social History household members: none other: She lives in [place]. Smoking Status: Former smoker alcohol intake: former Assessment & Plan Assessment & Plan narrative: 1. Liver transplant, present on admission and stable. 2. Aortic stenosis with history of TAVR, present on admission and stable. 3. History of lymphoma, currently in remission. 4. CAD with history of [place] and coronary artery stenting. Present on admission and active. 5. DM 2, present on admission and active. 6. Depression, present on admission and active. 7. Fibromyalgia, present on admission and Active. Plan: - Stable hemodynamics. - Cntinue usual chronic medications for cardiac and liver transplant. - Check blood sugars with correctional lispro. - Monitor liver function tests. Full resuscitation, confirmed on admission. Quality VTE Deep Vein Thrombosis/Pulmonary Embolism Present on Admission: No IH PROFEE Charge codes Subsequent inpatient/observation care: [id number]
[2024-05-16 18:00] VITALS: BP 121/65; PULSE 81; RESP 16; TEMP 37.1; O2SAT 94
[2024-05-16 19:53] VITALS: BP 116/66; PULSE 87; RESP 16; TEMP 36.2; O2SAT 95
[2024-05-16 20:59] VITALS: BP 116/66; PULSE 87
[2024-05-16] MEDS: METOPROLOL ER 50 MG TABLET 25 MG PO (20:59)
[2024-05-16] MEDS: GABAPENTIN 300 MG CAPSULE PO (20:59)
[2024-05-17] MEDS: ACETAMINOPHEN 325 MG TABLET 650 MG PO ×2 (00:19→05:42)
[2024-05-17] MEDS: TRAMADOL 50 MG TABLET PO ×3 (00:19→10:36)
[2024-05-17 00:40] VITALS: BP 115/60; PULSE 85; RESP 16; TEMP 36.8; O2SAT 94
[2024-05-17 05:07] VITALS: BP 103/60; PULSE 75; RESP 18; TEMP 36.5; O2SAT 95
[2024-05-17] MEDS: LEVOTHYROXINE 25 MCG TABLET PO (05:41)
[2024-05-17 05:45] VITALS: BP 103/60; PULSE 75; RESP 18; TEMP 36.2; O2SAT 95
[2024-05-17 08:00] VITALS: BP 125/50; PULSE 78; RESP 16; TEMP 36.1; O2SAT 93
[2024-05-17] MEDS: INSULIN LISPRO 100 UNIT/ML 3ML VIAL SUBCUT (08:22)
[2024-05-17] MEDS: METOPROLOL ER 50 MG TABLET 25 MG PO (08:23)
[2024-05-17] MEDS: METFORMIN HCL 500 MG TABLET PO (08:23)
[2024-05-17] MEDS: AMLODIPINE 5 MG TABLET 2.5 MG PO (08:23)
[2024-05-17] MEDS: DOCUSATE 100 MG CAPSULE PO (08:23)
[2024-05-17] MEDS: ASPIRIN EC 81 MG TABLET PO (08:23)
[2024-05-17] MEDS: CLOPIDOGREL 75 MG TABLET PO (08:24)
[2024-05-17] MEDS: polyethylene glycoL 3350 17 GM POWD.PACK PO (08:24)
[2024-05-17] MEDS: RANOLAZINE 500 MG TAB.ER.12H 1000 MG PO (08:24)
[2024-05-17] MEDS: allopurinoL 100 MG TABLET 200 MG PO (08:24)
[2024-05-17] MEDS: CITALOPRAM 10 MG TABLET 20 MG PO (08:24)
--- NOTE | 2024-05-17 09:56 | P.DS_ITS ---
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 Symptoms have been present for years, insidious onset. Patient has failed a reasonable attempt at conservative therapy. After extensive discussion in clinic, they wished to go forward with surgery. Risks and benefits were described including the risk of infection, bleeding, damage to internal structures including nerves. We also discussed the risk of failure of surgery and the need for revision surgery as well as the risk of anesthesia. The patient expressed understanding with these risks and wished to go forward with surgery. Discharge Providers Provider Date of admission: 05/15/2024 Discharge Date: 05/17/24 Primary care physician: Shahzad Ballesteros MD Consults: 05/05/24 07:16 Consult to Anesthesiology Routine Comment: Consulting Provider: Anesthesiologist Reason for consultation: PAC courtesty - cardiac. 05/15/24 06:39 Consult to Anesthesiology Routine Comment: Consulting Provider: Anesthesiologist Reason for consultation: Regional block for post operative pain control 05/15/24 17:24 Consult to Discharge Planning Routine Comment: Consult to Occupational Therapy Evaluate & Treat Comment: Physician Instructions: Evaluate and treat Consult to Physical Therapy Evaluate & Treat Comment: Physician Instructions: Evaluate and Treat 05/15/24 18:24 Consult to Hospitalist Service Routine Comment: Consulting Provider: Estuardo Pedro Reason for consultation: medical complexity Has provider been notified: Yes 05/16/24 14:44 Consult to Home Health Routine Comment: Reason For Exam: Home health upon discharge Discharge provider: Augusto Murphy PA-C Summary Hospital Course Discharge Diagnosis: Left shoulder avascular necrosis Hospital Course: rocedure: Left reverse total shoulder arthroplasty Same procedure as scheduled: Yes Surgeon: Alonzo Ocampo Band Maker: Annita Renteria Anesthesia Type: General Operative Notes Findings: Findings: Osteoarthritis of the glenoid and humeral head as noted on preoperative imaging and under direct visualization Closure Type: primary Specimen(s): none sent Prosthetic devices, grafts, tissues, transplants, or devices: Tornier implants Base plate: standard 25 mm, +3 mm offset Glenosphere: Standard 36 mm Stem: Perform 2 Poly: +0, 55% coverage Estimated Blood Loss (mL): 100 Blood products transfused: none Status at Discharge Cognitive/behavioral status at discharge: oriented Functional status at discharge: independent ambulation Overall status at discharge: patient is back to baseline Time Spent with Patient Time spent: Less than 30 minutes Exam Vital Signs (past 8 hours): - 05/17/24 05:07 05/17/24 05:45 05/17/24 08:00 Temperature 97.7 F 97.2 F L 96.9 F L Pulse Rate 75 75 78 Respiratory Rate 18 18 16 Blood Pressure 103/60 103/60 125/50 L Pulse Oximetry 95 95 93 Oxygen Flow Rate 0 0 0 Oxygen Delivery Method Nasal Cannula Oxygen Flow Rate 0 Narrative Exam Narrative: Patient found sitting comfortably in bed with friends at bedside. States that her pain is largely under control but feels that she is able to be discharged back home. She no longer feels great he has been able to get up and go to the bathroom with assistance. She worked with physical therapy yesterday. He is urinating without complications. Denies any fever chills nausea vomiting or shortness of breath. No acute distress. AOx3. Grossly normal alignment of the LUE with mild-moderate swelling throughout the LUE. No ecchymosis. Finger to thumb opposition intact, 4/5 germination testing manager strength. Gross sensation intact throughout bilateral upper extremities. Calves soft and non-tender bilaterally. Brisk capillary refill, pulses intact. Post-surgical Aquacel dressing clean, dry and intact over the left shoulder without drainage. Resp Effort & Inspection: normal respiratory effort and able to speak in complete sentences Objective Labs 05/16/24 04:43 05/16/24 04:43 [facility] Medical History Heart attack (2019) Non-Hodgkin lymphoma Arm fracture, left (2022) UTI (urinary tract infection) (01/2022) Cirrhosis, non-alcoholic Osteoarthritis Depression Skin cancer Hypothyroid Diabetes Hiatal hernia CAD (coronary artery disease) HLD (hyperlipidemia) Fibromyalgia Neuropathy Surgical History History of salpingo-oophorectomy History of appendectomy History of tonsillectomy H/O aortic valve replacement Hx of heart artery stent Hx of cholecystectomy Liver transplant recipient (2010) History of bilateral knee replacement (2012) Social History household members: none other: She lives in [place]. Smoking Status: Former smoker alcohol intake: former Discharge Assessment & Plan Assessment and Plan Assessment: Status post left TSA Plan of Treatment: 1) Discharge home today. 2) Continue multimodal pain management with ice to the shoulder for additional pain control. 3) ASA 81mg b.i.d. for DVT prophylaxis. May restart Plavix 75mg. 4) Remain in sling w/ no ER past neutral for 6 weeks. Recommend pendulum exercises. Patient needs to schedule outpatient PT, she states understanding and will call our office to set up appts. 5) Keep dressing intact, clean, dry until 2 week postop appointment. No soaking the incision site in pools or tubs. No topical ointments or creams to the incision site. 6) Follow up at [facility] orthopedics in 2 weeks for a postop appointment and wound check. All patient's questions were answered, she demonstrates understanding and is in agreement with the plan. Call our office if any questions or concerns arise. Discharge Plan Discharge Plan Patient Disposition: Home Discharge orders & Medications Discharge Orders: Discharge (Order); Ordered 05/17/24 Ordered By: Augusto Murphy Prescriptions: New tramadol 50 mg Tablet 50 mg PO Q6HR Qty: 30 0RF Continued amlodipine 2.5 mg tablet 2.5 mg PO DAILY Rx Instructions: QOD 5mg clopidogrel 75 mg tablet 75 mg PO DAILY Rx Instructions: Advised to hold 5 days preop. allopurinol 100 mg tablet 200 mg PO DAILY gabapentin 300 mg capsule 300 mg PO ONCE PM metoprolol succinate 50 mg tablet extended release 24 hr 25 mg PO BID prochlorperazine maleate 10 mg tablet 10 mg PO Q6H PRN (Reason: nausea) nitroglycerin 0.4 mg/hr patch 24 hour 1 patch topical DAILY nitroglycerin 0.4 mg tablet, sublingual 0.4 mg sublingual DIRECTED ondansetron 4 mg tablet,disintegrating 4 mg PO Q12H PRN (Reason: nausea/vomiting) metformin 500 mg Tablet 500 mg PO TID acetaminophen [Tylenol] 325 mg Tablet 650 mg PO DAILY PRN (Reason: Pain, Moderate) levothyroxine 25 mcg Tablet 25 mcg PO DAILY citalopram [Celexa] 20 mg Tablet 20 mg PO DAILY ranolazine 1,000 mg Tablet Extended Release 12 Hr 1,000 mg PO BID diclofenac sodium [Voltaren Arthritis Pain] 1 % Gel 2 g TOPICAL QID PRN (Reason: arthritis) Rx Instructions: apply to single elbow, wrist or hand; for hand includes palm/fingers/back of hand Changed aspirin 81 mg Tablet,Delayed Release (Dr/Ec) 81 mg PO BID Qty: 90 0RF Discontinued tramadol 50 mg tablet 50 mg PO BID PRN (Reason: Pain, Moderate) Follow up/Referrals: Shahzad Ballesteros MD [Primary Care Provider] - Diet/Activity/Treatments Diet: Diet as Tolerated Activity: Sling to remain on for 6 weeks. No external rotation past neutral for 6 weeks. Okay for the sling to come off for shower. Okay to shower over the Aquacel dressing. Skin/Wound/Dressing Care Report to your healthcare provider any signs of infection, such as:: chills, fever, night sweats, unusual drainage and unusual redness Dressing: Keep dressing on until post-op visit. If any water gets underneath the dressing, remove the dressing. Visit Report/Discharge Packet Instructions: DI for Prescription Opioid Use, DI for Shoulder Replacement Stand Alone Forms: Patient Portal/API, Surgery Discharge Discharge Data Primary Care Provider: Shahzad Ballesteros Attending Provider: Alonzo Ocampo VTE Deep Vein Thrombosis/Pulmonary Embolism Present on Admission: No
--- NOTE | 2024-05-17 10:30 | PT.IPTN ---
Current Diagnoses Primary osteoarthritis, left shoulder (05/15/24) Surgery Performed Operation Date: 05/15/24 13:30 Actual Procedures p Left reverse total shoulder arthroplasty with biceps tenodesis(Left) - Alonzo Ocampo MD Physical Therapy Treatment Note M2 PT-IP Current Condition Start: 05/16/24 12:17 Freq: NEEDED Status: Active Protocol: Document 05/16/24 09:20 AB (Rec: 05/16/24 12:29 AB [id number]) Physical Therapy Current Condition Current Condition Evaluation Date 05/16/24 Treatment Diagnosis s/p L TSA reverse; difficulty in walking Onset Date 05/15/24 M3 PT-IP Subjective Start: 05/16/24 12:17 Freq: NEEDED Status: Active Protocol: Document 05/17/24 10:30 AB (Rec: 05/17/24 12:44 AB [id number]) Subjective Physical Therapy Visit Type Type Treatment Note Visit Start Time 10:30 Visit Stop Time 10:55 Number of IMPREGNATING TANK OPERATOR Visits 0 Physical Therapy Visit Comments Patient Comments agreeable to do PT Therapy Pain Assessment Pain When Pain Assessed At Rest Pain Present Pain Present Pain Reported Location Left Shoulder Scale Used pain scale not stated Pain Management Techniques Apply Cold,Distraction, Modification of Treatment,Re- positioning,Timing of Activity with Medications M4 PT-IP Mobility and Gait Start: 05/16/24 12:17 Freq: NEEDED Status: Active Protocol: Document 05/17/24 10:30 AB (Rec: 05/17/24 12:44 AB [id number]) PT-Bed Mobility Assessment Supine to Sit Supine to Sit Standby Assistance PT-Transfer Assessment Sit to and From Stand Sit to and from Stand Standby Assistance,1 Person Assistance,Use of Upper Extremities Equipment Transfer Assistive Device Gait Belt,Straight Cane Orthotic/Prosthetic Devices or Brace: Yes Transfers Transfer Destination Chair Transfer Technique ambulated Transfer Ability Level of Assist Standby Assistance,1 Person Assistance,Use of Upper Extremities Comments Mobility Comments pt supine in bed and sister in room. pt agreed to do PT. completed bed mobility supine to sit SBA. able to sit on EOB SBA. pt able to doff sling off. completed elbow/ wrist/hand /finger exercises. pt was able to pam sling on with min A needed and cues. sit to stand from EOB SBA and ambulated in room using SPC SBA ~ 40 ft. pt sat on the [facility] chair and positioned. call light and table placed within reach. pt without any other concerns. Gait Assessment Gait Gait Assistance Required: Standby Assistance Distance (Feet) 40 Able to Maintain Weight Bearing Status Yes During Gait Assistive Devices Assistive Device Gait Belt,Straight Cane Orthotic/Prosthetic Devices or Brace: Yes Gait Deviations General Gait Pattern Antalgic,Decreased Stride Length Factors Limiting Gait Function Factors Limiting Gait Function Decreased Activity Tolerance, Decreased Strength,Limited Range of Motion,Pain,Poor Balance,Poor Safety Awareness M5 PT-IP Objective Assessments Start: 05/16/24 12:17 Freq: NEEDED Status: Active Protocol: Document 05/16/24 09:20 AB (Rec: 05/16/24 12:29 AB [id number]) Orientation Orientation/Cognition Level of Alertness Alert Orientation Name,Place,Situation Language Function Ability Hard of Hearing Safety Awareness Decreased Safety Awareness Memory Description No Deficits Noted Gross Range of Motion Lower Extremity ROM Assessment Within Functional Limits Strength Lower Extremity Strength Assessment Within Functional Limits Coordination Assessment Gross Coordination Gross Coordination WNL Sensation Assessment Sensation Sensation Description Numbness Comments Sensation Comments B feet numbness per pt Muscle Tone Muscle Tone WNL Yes M6 PT-IP Treatment Start: 05/16/24 12:17 Freq: NEEDED Status: Active Protocol: Document 05/17/24 10:30 AB (Rec: 05/17/24 12:44 AB [id number]) Physical Therapy Treatment Exercises Exercises Elbow Flexion/Extension,Wrist ROM,Hand ROM Education Education Provided Precautions,Safety M7 PT-IP Assessment and Plan Start: 05/16/24 12:17 Freq: NEEDED Status: Active Protocol: Document 05/17/24 10:30 AB (Rec: 05/17/24 12:44 AB [id number]) PT Summary Assessment and Plan Potential Rehabilitation Potential Fair Summary Impairments Pain,ROM,Strength,Balance, Coordination,Sensation,Tone, Cognition,Bed Mobility, Transfers,Gait,Activity Tolerance Progress Towards Goals Slow Progress due to Pain,Slow Progress - Other Assessment Summary pt requiring SBA with mobility using SPC. requiring min A for donning sling on. pt plans to go home and sister to assister for ~ 2 days and will have friends to assist her afterwards when needed. pt plans to go home today. pt will need HHPT. Goals Bed Mobility Goal Independent Transfer Goal Independent,Cane Gait Goal Independent,Cane Gait Distance 200 Other Goals improve transfers, ambulation without AD 250 ft mod I up/down 15 steps 1 rail mod I Days to Meet Goals 10 Frequency of Treatment Frequency Of Treatment Twice a Day Treatment Plan Physical Therapy Treatment Plan Bed Mobility Training,Transfer Training,Gait Training, Therapeutic Exercise,Balance Retraining,Post Op Education, Discharge Planning,Hot or Cold Pack,Neuromuscular Re-ed, Coordination Retraining,Manual Therapy Other Recommendations and Next Treatment donning/doffing of sling, Focus ambulation, stair climbing Precautions Shoulder Precautions Sling,PROM,Internal Rotation to Body,No External Rotation, No Abduction,Forward Flexion to 90 degrees,Pendulums Weight Bearing Status Weight Bearing Status Non-Weight Bearing Allowed Weight Bearing Amount (enter % LUE NWB or #) (%) Recommendations To Nursing Amount of Assist Needed 1 Person Assist Discharge Recommendations PT Discharge Recommendations Home with 22/01 Assist Available,Home Health Transportation Needs at Discharge Private Vehicle,Wheelchair/ Cabulance
--- NOTE | 2024-05-17 11:07 | P.PN_ITS ---
Subjective Subjective Date Patient Seen: 05/17/24 Time Patient Seen: 09:13 Interval history: Reason for consult: Medical management, history of liver transplant, AFib, and TAVR. Narrative: Patient was a 74-year-old female who is status post a left shoulder replacement. The surgery went well and she would minimal estimated blood loss. She was extubated in the PACU and is doing well upon transfer to the floor. She denies any chest pain, or dyspnea. She also denies any recent increase of leg edema or orthopnea. She is followed by Dr. Srivastava at [facility]. He gave her a preoperative clearance for her surgery. She denies any recent issues with nausea, or vomiting. No abdominal pain. She does have a history of multiple drug allergies and is reluctant to take any pain medication other than tramadol. She does take this chronically, and request 100 mg q.4 hours as needed. She has no history of seizure disorder. Interval history: She reports be feeling well. No chest pain, shortness for breath, breathing difficulty, leg pain or swelling, rash or other concerns. States she feels ready to go home today Exam Vital Signs (past 8 hours): - 05/17/24 05:07 05/17/24 05:45 05/17/24 08:00 Temperature 97.7 F 97.2 F L 96.9 F L Pulse Rate 75 75 78 Respiratory Rate 18 18 16 Blood Pressure 103/60 103/60 125/50 L Pulse Oximetry 95 95 93 Oxygen Flow Rate 0 0 0 Oxygen Delivery Method Nasal Cannula Oxygen Flow Rate 0 Narrative Exam Narrative: NAD, alert and oriented, fluent speech, calm. Oropharynx unremarkable, no droop. Neck supple, midline trachea, no adenopathy. Lungs clear, normal rate and effort. Heart regular, no murmur gallop or rub. Abdomen is soft, non distended and non tender. Extremities are free of edema. Skin is free of rash or lesions. Joints are not swollen or deformed. Judgment appears to be normal. Left shoulder is in an immobilizer. She has an accessed left chest port. Objective Labs 05/16/24 04:43 05/16/24 04:43 [facility] Medical History Heart attack (2018) Non-Hodgkin lymphoma Arm fracture, left (2023) UTI (urinary tract infection) (01/2022) Cirrhosis, non-alcoholic Osteoarthritis Depression Skin cancer Hypothyroid Diabetes Hiatal hernia CAD (coronary artery disease) HLD (hyperlipidemia) Fibromyalgia Neuropathy Surgical History History of salpingo-oophorectomy History of appendectomy History of tonsillectomy H/O aortic valve replacement Hx of heart artery stent Hx of cholecystectomy Liver transplant recipient (2010) History of bilateral knee replacement (2012) Social History household members: none other: She lives in [place]. Smoking Status: Former smoker alcohol intake: former Assessment & Plan Assessment & Plan narrative: 1. Liver transplant, present on admission and stable. 2. Aortic stenosis with history of TAVR, present on admission and stable. 3. History of lymphoma, currently in remission. 4. CAD with history of PA and coronary artery stenting. Present on admission and active. 5. DM 2, present on admission and active. 6. Depression, present on admission and active. 7. Fibromyalgia, present on admission and Active. Plan: - Stable medically for discharge, per Orthopedics. - Continue usual chronic medications for cardiac and liver transplant. Full resuscitation, confirmed on admission. Quality VTE Deep Vein Thrombosis/Pulmonary Embolism Present on Admission: No [facility] PROFEE Charge codes Subsequent inpatient/observation care: [id number]
--- NOTE | 2024-05-17 16:23 | CM.DPC ---
DCP Discharge Home with HH Per Ortho PA, pt medically stable to d/c home today with HH and outpt f/u and no identified barriers to d/c. Per PT, pt participated this morning and recommending home with assist and HH. Pt's sister to stay a couple days and then friends to assist. SW faxed discharge summary to [facility] to review and F2F and orders previously sent. ATILIO Higuera
== END 2024-05-17 13:16 | disposition home or self-care (01) ==
LOC: OR 11:14 → AC 11:15
PROVIDERS: PCP Family Medicine; Referring Provider Family Medicine; Visit Provider Orthopaedic Surgery
PROC: (CPT 23472; principal; 2024-05-15 13:30)
DX: M19.012 Primary osteoarthritis, left shoulder (principal); M25.712 Osteophyte, left shoulder
CPT/HCPCS: 23472; 36415; 64415; 73020; 80048; 82962; 85025; 97116; 97162; 97165; 97530; C1776; J0171; J1815; J2405; J2704; J3010